=== PATIENT | male | born 1970 | race Caucasian/White ===

== ENCOUNTER 2020-08-26 10:38 | Emergency (ER) | payer SELFPAY ==
[~2020-08-26] VITALS: Ht 175.3 cm; Wt 68.1 kg
[~2020-08-26 10:38] MED LIST: LAMO25TA13 PO; TRAZ-175 PO
--- NOTE | 2020-08-26 11:26 | NUR ---
pt is a 50m complaining of dental pain and swelling on the right side. He is also having pain and swelling in his jaw, ear, and down his neck on the right side. Spouse at bedside. cycling vitals and continuous sp02. call light within reachl
--- NOTE | 2020-08-26 11:27 | NUR ---
pt to ct via [facility]
[2020-08-26] MEDS ORDERED: KETOROLAC 30 MG/1 ML IVPush ONE (11:30)
[2020-08-26] MEDS ORDERED: ONDANSETRON 2MG/ML, 2ML IVPush ONE (11:30)
[2020-08-26] MEDS ORDERED: KETOROLAC 30 MG/1 ML ONE (11:59)
[2020-08-26] MEDS ORDERED: ONDANSETRON 2MG/ML, 2ML ONE (11:59)
--- NOTE | 2020-08-26 12:22 | NUR ---
IV start, medicated per emar, spouse at bedside, vitals updated, call light within reach.
[2020-08-26] MEDS ORDERED: CLINDAMYCIN 300 MG CAPSULE ONE ×2 (12:29→12:34)
[2020-08-26] MEDS ORDERED: CLINDAMYCIN 150 MG CAPSULE PO ONE (12:30)
[2020-08-26 12:33] LABS: BASOPHILS % (AUTO) 0 % (0-1); EOSINOPHILS % (AUTO) 1 % (1-7); LYMPHOCYTES % (AUTO) 10 % (22-44); MEAN CORPUSCULAR HEMOGLOBIN 32.3 pg (27.5-34.5); MEAN CORPUSCULAR HGB CONC 34.7 g/dL (33.2-36.2); MEAN PLATELET VOLUME 9.4 fL (7.4-10.4); MONOCYTES % (AUTO) 10 % (2-9); NEUTROPHILS % (AUTO) 80 % (42-75); PLATELET COUNT 185 x10^3/uL (130-400); RED BLOOD COUNT 4.69 x10^6/uL (4.38-5.82)
[2020-08-26 12:37] LABS: MD NO
[2020-08-26 12:39] LABS: ALBUMIN 3.4 g/dL (3.4-5.0); CALCIUM 8.8 mg/dL (8.5-10.1); CREATININE 0.99 mg/dL (0.7-1.3)
[2020-08-26 12:52] LABS: ANION GAP 8 mmol/L (5-15); CHLORIDE 108 mmol/L (98-107)
[2020-08-26] MEDS ORDERED: CLINDAMYCIN 300 MG CAPSULE PO ONE (13:00)
[2020-08-26 13:07] VITALS: BP 130/84
--- NOTE | 2020-08-26 13:09 | NUR ---
Patient/Caregiver given discharge instructions and they have confirmed that they understand the instructions. Patient ambulatory with steady gait.
== END 2020-08-26 13:10 | disposition home or self-care (01) ==
LOC: ED 11:52
DX: K08.89 Other specified disorders of teeth and supporting structures (principal)
CPT/HCPCS: 36415; 70486; 80048; 82040; 85025; 96374; 96375; 99284; J1885; J2405